=== PATIENT | female | born 1945 | race Asian ===

== ENCOUNTER → 2016-11-17 | Outpatient (CLI) | payer OTHER, MEDICARE | LOC: CIMAGING 15:28 | PROVIDERS: ATTEND Nurse Practitioner | DX: K59.00 Constipation, unspecified (principal) | CPT/HCPCS: 74020-PO ==

== ENCOUNTER → 2018-12-28 | Outpatient (CLI) | payer OTHER, MEDICARE | LOC: EMCIMAGING 09:44 | PROVIDERS: ATTEND Nurse Practitioner | DX: Z12.31 Encounter for screening mammogram for malignant neoplasm of breast (principal) | CPT/HCPCS: 77067-PN ==